=== PATIENT | male | born 1955 | race Caucasian/White ===

== ENCOUNTER 2017-08-13 10:48 | Emergency (ER) | payer OTHER, SELFPAY ==
[2017-08-13 10:54] VITALS: BP 150/85; PULSE 69; RESP 16; TEMP 36.9; O2SAT 96
--- NOTE | 2017-08-13 13:15 | PC.NURSE ---
PT SELF CATH AT 0030 IB 08/12/17. REPORTS HEMATURIA
[2017-08-13 13:27] LABS: Bilirubin Urine UA NEGATIVE (NEGATIVE); Color Urine UA YELLOW; Glucose Urine UA NEGATIVE (NEGATIVE); Ketones Urine UA NEGATIVE (NEGATIVE); Leukocyte Esterase Urine UA 2+ (NEGATIVE); Nitrite Urine UA NEGATIVE (NEGATIVE); Occult Blood Urine UA 3+ (NEGATIVE); Protein Urine UA 2+ (NEGATIVE); Urobilinogen Urine UA 0.2 E.U./dL (0.2)
[2017-08-13 13:50] LABS: Appearance Urine UA SLIGHTLY CLOUDY
[2017-08-13 13:53] LABS: Amorphous Sediment Urine 1+; Bacteria Urine Moderate (10-30); Culture Indicated Urine Specimen Cultured; Mucus Urine 1+ (Negative); RBC Urine 30-100/HPF (0-5/HPF); Squamous Epithelial Cell Urine 0-1 /HPF; WBC Urine 30-100/HPF (0-5/HPF)
--- NOTE | 2017-08-13 14:12 | ED_ITS ---
HPI - Male Genitourinary <SARAH Garduno - Last Filed: 08/13/17 22:35> General Chief complaint: Urogenital-Male Stated complaint: CANT PEE, BLOOD IN URINE, SURGERY FEW MONTHS AGO History of Present Illness HPI Narrative: 62-year-old male here for complaint of not being able to urinate since yesterday. Patient has a history of having acute urinary retention urosepsis status post TURP surgery a couple months ago. He is currently being treated by Urology at [facility]. He states that he uses self catheterization yesterday to be able to urinate but has not been able urinate since. He is currently taken antibiotics for urinary tract infection. He denies any fevers or chills. No flank pain no abdominal pain. No nausea vomiting. Positive p.o. intake. Related Data Home Medications Medication Instructions Recorded Confirmed lisinopril 40 mg PO QDAY #0 04/28/17 08/13/17 pravastatin 40 mg PO QDAY #0 04/28/17 08/13/17 [PROBIOTIC 4X ORAL] 1 tab PO QDAY #0 06/10/17 08/13/17 cholecalciferol (vitamin D3) 2,000 unit PO QDAY #0 06/10/17 08/13/17 [Vitamin D3] diphenhydramine-acetaminophen 2 tab PO HS #0 06/10/17 08/13/17 [Tylenol PM Extra Strength] multivitamin [Multiple Vitamins] 1 tab PO QDAY #0 06/10/17 08/13/17 phenazopyridine [Pyridium] 1 tab PO PRN PRN #0 06/10/17 08/13/17 amoxicillin 1 cap PO TID 08/13/17 08/13/17 cefdinir 300 mg PO BID 08/13/17 08/13/17 Allergies Allergy/AdvReac Type Severity Reaction Status Date / Time adhesive [ADHESIVE] Allergy Unknown Verified 08/15/17 08:03 corn syrup [CORN SYRUP] Allergy Unknown Verified 08/15/17 08:03 lactose [LACTOSE] Allergy Unknown Verified 08/15/17 08:03 EGGS Allergy Unknown DIARRHEA Uncoded 08/15/17 08:03 Review of Systems <SARAH Garduno - Last Filed: 08/13/17 22:35> Constitutional Denies fever(s) Eyes Reports system reviewed and no additional complaints, except as docu ENT Ears, Nose, Mouth, and Throat: Reports system reviewed and no additional complaints, except as docu Cardiovascular Denies chest pain and Denies dyspnea Respiratory Denies dyspnea and Denies wheezing Gastrointestinal Gastrointestinal: Denies abdominal pain Genitourinary Reports other Musculoskeletal Reports system reviewed and no additional complaints, except as docu and Denies back pain Integumentary/Breasts Reports system reviewed and no additional complaints, except as docu Neurologic Reports system reviewed and no additional complaints, except as docu Psychiatric Reports system reviewed and no additional complaints, except as docu Allergic/Immunologic Denies wheezing Exam <SARAH Garduno - Last Filed: 08/13/17 22:35> Const General: healthy appearing, comfortable, well groomed and No acute distress Orientation: alert, awake and oriented x3 HENMT Head: normal to inspection and normocephalic Mouth: moist mucous membranes Eyes Pupils: PERRL EOM: EOM intact bilaterally Resp Effort & Inspection: normal respiratory effort Auscultation: clear to auscultation bilaterally Cardio Rate: regular rate Rhythm: regular rhythm Heart Sounds: S1 normal, S2 normal, no click, no gallops, no murmurs and no rubs GI Inspection: normal to inspection Palpation: soft, No hernia, No mass, No pulsatile mass and No tender General: No CVA tenderness Skin General: dry skin and warm Course <SARAH Garduno - Last Filed: 08/13/17 22:35> Orders Ordered: ED Orders 08/13/17 13:00 Urinalysis and Microscopic Stat Last Vital Signs Temp 98.5 F 08/13/17 10:54 Pulse 50 L 08/13/17 14:22 Resp 12 08/13/17 14:22 BP 133/72 H 08/13/17 14:22 Pulse Ox 50 L 08/13/17 14:22 <Sampson Solis MD - Last Filed: 08/22/17 04:51> Orders Ordered: ED Orders 08/13/17 13:00 Urinalysis and Microscopic Stat Last Vital Signs Temp 98.5 F 08/13/17 10:54 Pulse 50 L 08/13/17 14:22 Resp 08/13/17 14:22 BP 133/72 H 08/13/17 14:22 Pulse Ox 50 L 08/13/17 14:22 MDM - Male Genitourinary <SARAH Garduno - Last Filed: 08/13/17 22:35> [facility] Narrative Medical decision making narrative: Bladder scan showed over 800 mL of urine in the bladder. Kirkpatrick catheterization was completed draining yellow urine. Patient reported feeling better after Kirkpatrick catheter urinalysis indicates urinary tract infection. Patient is currently under antibiotic treatment for this of by Urology at [facility] attempted to contact Urology however was not able to get through. Patient does have appointment with Urology next week. Kirkpatrick catheter is left in a dwelling. Patient encouraged to continue taking antibiotics as directed. For any worsening symptoms return to the emergency room. Patient will follow up with Urology Lab Data Lab Results 08/13/17 Range/Units 13:00 Urine Color Yellow Urine Appearance Slightly cloudy Urine pH 5.0 (4.5-8.0) Ur Specific [place] 1.020 (1.000-1.035) Urine Protein 2+ H (NEGATIVE) Urine Glucose (UA) Negative (NEGATIVE) g/dL Urine Ketones Negative (NEGATIVE) Urine Occult Blood 3+ H (NEGATIVE) Urine Nitrate Negative (NEGATIVE) Urine Bilirubin Negative (NEGATIVE) Urine Urobilinogen 0.2 (0.2) E.U./dL Ur Leukocyte Esterase 2+ H (NEGATIVE) Urine RBC 30-100/hpf H (0-5/HPF) Urine WBC 30-100/hpf H (0-5/HPF) Ur Squamous Epith Cells 0-1 /hpf Amorphous Sediment 1+ Urine Bacteria Moderate (10-30) H (None) Urine Mucus 1+ H (Negative) Ur Culture Indicated? Specimen cultured Micro UA Comment Not Reportable <Sampson Solis MD - Last Filed: 08/22/17 04:51> Medical Records The PA/RN CLINICAL APPEALS functioned independently for the care of this pt, I was available, but not asked to participate in care. I am unable to determine appropriateness of management without personally examining the pt. Lab Data Lab Results 08/13/17 Range/Units 13:00 Urine Color Yellow Urine Appearance Slightly cloudy Urine pH 5.0 (4.5-8.0) Ur Specific [place] 1.020 (1.000-1.035) Urine Protein 2+ H (NEGATIVE) Urine Glucose (UA) Negative (NEGATIVE) g/dL Urine Ketones Negative (NEGATIVE) Urine Occult Blood 3+ H (NEGATIVE) Urine Nitrate Negative (NEGATIVE) Urine Bilirubin Negative (NEGATIVE) Urine Urobilinogen 0.2 (0.2) E.U./dL Ur Leukocyte Esterase 2+ H (NEGATIVE) Urine RBC 30-100/hpf H (0-5/HPF) Urine WBC 30-100/hpf H (0-5/HPF) Ur Squamous Epith Cells 0-1 /hpf Amorphous Sediment 1+ Urine Bacteria Moderate (10-30) H (None) Urine Mucus 1+ H (Negative) Ur Culture Indicated? Specimen cultured Micro UA Comment Not Reportable Discharge Plan Departure Patient Disposition: Home, Self-Care Clinical Impression: Acute urinary retention Discharge Date/Time: 08/13/17 14:43 Interventions: ED Discharge Assessment Last Done: 08/13/17 14:43 Instructions: DI for Urinary Retention in Men Activity Restrictions/Additional Instructions: Kirkpatrick catheter was inserted to allow you to be able to urinate. Keep Kirkpatrick catheter in place. Follow up with Urology as scheduled or sooner if able. Continue taking the antibiotics as prescribed. For any worsening symptoms return to the emergency room. Prescriptions: No Action lisinopril 40 MG tablet 40 mg PO QDAY Qty: 0 RF: 0 pravastatin 40 MG tablet 40 mg PO QDAY Qty: 0 RF: 0 phenazopyridine [Pyridium] 100 MG tablet 1 tab PO PRN PRN (Reason: Analgesia) Qty: 0 RF: 0 cholecalciferol (vitamin D3) [Vitamin D3] 2,000 UNIT capsule 2,000 unit PO QDAY Qty: 0 RF: 0 multivitamin [Multiple Vitamins] 1 EACH tablet 1 tab PO QDAY Qty: 0 RF: 0 diphenhydramine-acetaminophen [Tylenol PM Extra Strength] 500 MG/25 MG tablet 2 tab PO HS Qty: 0 RF: 0 [PROBIOTIC 4X ORAL] 1 tab PO QDAY Qty: 0 RF: 0 amoxicillin 500 mg capsule 1 cap PO TID RF: 0 cefdinir 300 mg capsule 300 mg PO BID RF: 0 Referrals: Gildardo Jones MD [Primary Care Provider] -
[2017-08-13 14:22] VITALS: BP 133/72; PULSE 50; RESP 12; O2SAT 50
== END 2017-08-13 14:43 | disposition home or self-care (01) ==
PROVIDERS: Emergency Provider Nurse Practitioner Family; Family Provider Family Medicine; PCP Family Medicine
DX: R33.9 Retention of urine, unspecified (principal)
CPT/HCPCS: 51701; 51798; 81001; 87086; 99283

== ENCOUNTER 2017-08-14 06:13 | Emergency (ER) | payer OTHER, SELFPAY ==
[2017-08-13 10:54] VITALS: TEMP 36.9
[2017-08-14 07:00] VITALS: BP 150/84; PULSE 62; RESP 18; TEMP 36.9; O2SAT 99
[2017-08-14 07:03] VITALS: BP 147/70; PULSE 61; RESP 18; O2SAT 98
--- NOTE | 2017-08-22 04:08 | ED_ITS ---
HPI - Male Genitourinary General Chief complaint: Urogenital-Male Stated complaint: HAS DAVIES IN, THINKS IT IS PLUGGED Time Seen by Provider: 08/14/17 07:18 History of Present Illness HPI Narrative: HPI 62 y/o male s/p TURP with subsequent Davies catheter usage presents due to difficulty urinating through his Davies catheter. Denies fevers, chills, suprapubic pain, or dysuria. Patient has follow-up later today with urology. ROS with no recent constitutional symptoms. Exam Gen: Pleasant, nontoxic-appearing, resting comfortably. HEENT: NC, AT, PEERL, EOMI. Resp: Unlabored respirations with a normal work of breathing. Card: Extremities warm and well perfused. GI: Non-distended. : no suprapubic tenderness palpation. MSK: No visible deformities, strength and tone without visually appreciable deficit. Neuro: AO x 3, no facial asymmetry, vision and hearing WNL. Heme/Lymph: Deferred Skin: Normal color with no visible lesions (other than noted above). Psych: Mood and affect appropriate. UA - 3+ blood, positive nitrate, 2+ leukocyte esterase. Moderate bacteria, 0-1 squamous epithelial cells. MDM Previous chart, nursing note, and vitals reviewed. A: 62 y/o male s/p TURP with subsequent Davies catheter usage presents due to difficulty urinating through his Davies catheter. DDx & Evaluation: Davies catheter exchange by nursing prior to evaluation, patient had subsequent complete drainage of bladder. UA sent by protocol, review , consistent with colonization as history and exam are without signs of active infection. Patient discharged to same-day urology follow-up for further care. Impression: urinary retention (please reference below for remainder of encounter information) Related Data Home Medications Medication Instructions Recorded Confirmed lisinopril 40 mg PO QDAY #0 04/28/17 08/13/17 pravastatin 40 mg PO QDAY #0 04/28/17 08/13/17 [PROBIOTIC 4X ORAL] 1 tab PO QDAY #0 06/10/17 08/13/17 cholecalciferol (vitamin D3) 2,000 unit PO QDAY #0 06/10/17 08/13/17 [Vitamin D3] diphenhydramine-acetaminophen 2 tab PO HS #0 06/10/17 08/13/17 [Tylenol PM Extra Strength] multivitamin [Multiple Vitamins] 1 tab PO QDAY #0 06/10/17 08/13/17 phenazopyridine [Pyridium] 1 tab PO PRN PRN #0 06/10/17 08/13/17 amoxicillin 1 cap PO TID 08/13/17 08/13/17 cefdinir 300 mg PO BID 08/13/17 08/13/17 Allergies Allergy/AdvReac Type Severity Reaction Status Date / Time adhesive [ADHESIVE] Allergy Unknown Verified 08/15/17 08:03 corn syrup [CORN SYRUP] Allergy Unknown Verified 08/15/17 08:03 lactose [LACTOSE] Allergy Unknown Verified 08/15/17 08:03 EGGS Allergy Unknown DIARRHEA Uncoded 08/15/17 08:03 Course Last Vital Signs Temp 98.5 F 08/14/17 07:00 Pulse 61 08/14/17 07:03 Resp 18 08/14/17 07:03 BP 147/70 H 08/14/17 07:03 Pulse Ox 98 08/14/17 07:03 Discharge Plan Departure Patient Disposition: Home, Self-Care Clinical Impression: Complication, blocked Davies catheter Discharge Date/Time: 08/14/17 07:34 Interventions: ED Discharge Assessment Last Done: 08/14/17 07:34 Activity Restrictions/Additional Instructions: Please follow up as scheduled with your urologist today. Please return if you have fevers, chills, bladder pain, if you are unable to urinate or if you are otherwise concerned about your health. Prescriptions: No Action lisinopril 40 MG tablet 40 mg PO QDAY Qty: 0 RF: 0 pravastatin 40 MG tablet 40 mg PO QDAY Qty: 0 RF: 0 phenazopyridine [Pyridium] 100 MG tablet 1 tab PO PRN PRN (Reason: Analgesia) Qty: 0 RF: 0 cholecalciferol (vitamin D3) [Vitamin D3] 2,000 UNIT capsule 2,000 unit PO QDAY Qty: 0 RF: 0 multivitamin [Multiple Vitamins] 1 EACH tablet 1 tab PO QDAY Qty: 0 RF: 0 diphenhydramine-acetaminophen [Tylenol PM Extra Strength] 500 MG/25 MG tablet 2 tab PO HS Qty: 0 RF: 0 [PROBIOTIC 4X ORAL] 1 tab PO QDAY Qty: 0 RF: 0 amoxicillin 500 mg capsule 1 cap PO TID RF: 0 cefdinir 300 mg capsule 300 mg PO BID RF: 0
== END 2017-08-14 07:34 | disposition home or self-care (01) ==
PROVIDERS: Emergency Provider Emergency Medicine; Family Provider Family Medicine; PCP Family Medicine
DX: T83.091A Other mechanical complication of indwelling urethral catheter, initial encounter (principal)
CPT/HCPCS: 51700; 99283

== ENCOUNTER 2017-08-15 07:54 | Emergency (ER) | payer OTHER, SELFPAY ==
[2017-08-15 08:00] VITALS: BP 168/79; PULSE 61; RESP 15; TEMP 37.1; O2SAT 96; BMI 27.2
--- NOTE | 2017-08-15 08:25 | PC.NURSE ---
pt with enlarge prostates, claims catheter 16 f (caude)is not draining, requesting bigger cath. on arrival huang irrigated without difficulty, draining yellow urine with no clots or fiber noted. dr cloud made aware. pt denies pain ,fever,nausea or vomiting. spouse at bs during procedure.
[2017-08-15 09:03] VITALS: BP 159/74; PULSE 52; RESP 16; O2SAT 97
--- NOTE | 2017-08-15 09:08 | ED_ITS ---
HPI - Male Genitourinary General Chief complaint: Urogenital-Male Stated complaint: CATH IS PLUGGED Time Seen by Provider: 08/15/17 08:00 Source: patient and family Mode of arrival: ambulatory Limitations: no limitations History of Present Illness HPI Narrative: Patient returns to the emergency department for evaluation of a Huang catheter problem. He has had ongoing difficulties initiating a urine stream since he had a TURP a few months ago. He was seen yesterday and had a 14 Jamaican coude catheter placed. It had been functioning fine until this morning and after attempts at irrigation it would not drain. He denies fever chills or pain. He has a follow-up appointment with his urologist next Friday Complaint: other (Huang catheter problem) Onset (ago): hour(s) Duration: constant Related Data Home Medications Medication Instructions Recorded Confirmed lisinopril 40 mg PO QDAY #0 04/28/17 08/13/17 pravastatin 40 mg PO QDAY #0 04/28/17 08/13/17 [PROBIOTIC 4X ORAL] 1 tab PO QDAY #0 06/10/17 08/13/17 cholecalciferol (vitamin D3) 2,000 unit PO QDAY #0 06/10/17 08/13/17 [Vitamin D3] diphenhydramine-acetaminophen 2 tab PO HS #0 06/10/17 08/13/17 [Tylenol PM Extra Strength] multivitamin [Multiple Vitamins] 1 tab PO QDAY #0 06/10/17 08/13/17 phenazopyridine [Pyridium] 1 tab PO PRN PRN #0 06/10/17 08/13/17 amoxicillin 1 cap PO TID 08/13/17 08/13/17 cefdinir 300 mg PO BID 08/13/17 08/13/17 Allergies Allergy/AdvReac Type Severity Reaction Status Date / Time adhesive [ADHESIVE] Allergy Unknown Verified 08/15/17 08:03 corn syrup [CORN SYRUP] Allergy Unknown Verified 08/15/17 08:03 lactose [LACTOSE] Allergy Unknown Verified 08/15/17 08:03 EGGS Allergy Unknown DIARRHEA Uncoded 08/15/17 08:03 Review of Systems Review of Systems All systems reviewed & are unremarkable except as noted in HPI and below Constitutional Denies chills, Denies fever(s), Denies lethargy and Denies weakness ENT Ears, Nose, Mouth, and Throat: Denies change in voice, Denies neck pain and Denies sore throat Cardiovascular Denies dyspnea and Denies dyspnea on exertion Respiratory Denies cough, Denies dyspnea, Denies dyspnea on exertion and Denies wheezing Genitourinary Reports system reviewed and no additional complaints, except as docu Comments: urinary retention Musculoskeletal Denies neck pain Integumentary/Breasts Denies pruritus, Denies erythema, Denies rash and Denies wounds Neurologic Denies weakness Allergic/Immunologic Denies wheezing Exam Const General: cooperative and well developed Nutritional Appearance: well nourished Orientation: alert, awake, oriented x3 and not confused HENAR Head: normocephalic and atraumatic Ears: external ears normal and TM's normal bilaterally Nose: external nose normal and No nasal discharge Face and sinus: sinuses nontender, face symmetric, no sinus tenderness and No dry mucous membranes Mouth: oral mucosae normal and moist mucous membranes Teeth and gingiva: dentition normal Throat: tonsils normal and uvula midline Resp Effort & Inspection: normal respiratory effort, able to speak in complete sentences, no respiratory distress and no use of accessory muscles Auscultation: clear to auscultation bilaterally, no rales, no rhonchi and no wheezes GI Inspection: non-distended Palpation: soft, no hepatosplenomegaly, No guarding, No pulsatile mass and No tender Auscultation: normal bowel sounds Other: huang in place, draining appropriately Skin General: no rashes or lesions noted, No jaundice and No petechiae Course Reevaluation(s) Reevaluation #1: Patient eventually states that he had been leaking urine around his Huang at which point we discussed placing a slightly larger Huang. Nursing placed an 18 Jamaican without difficulty which was draining appropriately on discharge. Last Vital Signs Temp 98.7 F 08/15/17 08:00 Pulse 52 L 08/15/17 09:03 Resp 16 08/15/17 09:03 BP 159/74 H 08/15/17 09:03 Pulse Ox 97 08/15/17 09:03 Discharge Plan Departure Patient Disposition: Home, Self-Care Clinical Impression: Complication of Huang catheter Discharge Date/Time: 08/15/17 09:18 Interventions: ED Discharge Assessment Last Done: 08/15/17 09:27 Instructions: How to Care for Your Huang Catheter -- Male Prescriptions: No Action lisinopril 40 MG tablet 40 mg PO QDAY Qty: 0 RF: 0 pravastatin 40 MG tablet 40 mg PO QDAY Qty: 0 RF: 0 phenazopyridine [Pyridium] 100 MG tablet 1 tab PO PRN PRN (Reason: Analgesia) Qty: 0 RF: 0 cholecalciferol (vitamin D3) [Vitamin D3] 2,000 UNIT capsule 2,000 unit PO QDAY Qty: 0 RF: 0 multivitamin [Multiple Vitamins] 1 EACH tablet 1 tab PO QDAY Qty: 0 RF: 0 diphenhydramine-acetaminophen [Tylenol PM Extra Strength] 500 MG/25 MG tablet 2 tab PO HS Qty: 0 RF: 0 [PROBIOTIC 4X ORAL] 1 tab PO QDAY Qty: 0 RF: 0 amoxicillin 500 mg capsule 1 cap PO TID RF: 0 cefdinir 300 mg capsule 300 mg PO BID RF: 0
--- NOTE | 2017-08-15 09:28 | PC.NURSE ---
huang draining well, clear yellow urine, pt much satisfied.
== END 2017-08-15 09:18 | disposition home or self-care (01) ==
PROVIDERS: Emergency Provider Emergency Medicine; Family Provider Family Medicine; PCP Family Medicine
DX: T83.9XXA Unspecified complication of genitourinary prosthetic device, implant and graft, initial encounter (principal)
CPT/HCPCS: 51700; 51701; 51705; 99283

== ENCOUNTER → 2017-08-26 07:39 | Outpatient (CLI) | payer OTHER, SELFPAY ==
[2017-08-26 08:52] LABS: Appearance Urine UA CLEAR; Bilirubin Urine UA NEGATIVE (NEGATIVE); Color Urine UA YELLOW; Glucose Urine UA TRACE g/dL (Negative); Ketones Urine UA NEGATIVE (NEGATIVE); Leukocyte Esterase Urine UA NEGATIVE (NEGATIVE); Nitrite Urine UA NEGATIVE (NEGATIVE); Occult Blood Urine UA TRACE-LYSED (Negative); Protein Urine UA TRACE (Negative); Specific Gravity Urine UA 1.025 (1.000-1.035); Urobilinogen Urine UA 0.2 E.U./dL (0.2)
[2017-08-26 09:50] LABS: RBC Urine 5-10/HPF (0-5/HPF); WBC Urine 5-10/HPF (0-5/HPF)
[2017-08-26 09:51] LABS: Culture Indicated Urine Specimen Cultured
== END ==
PROVIDERS: Family Provider Family Medicine; PCP Family Medicine; Visit Provider Internal Medicine Infectious Disease
DX: N39.0 Urinary tract infection, site not specified (principal)
CPT/HCPCS: 81001; 87086

== ENCOUNTER → 2017-10-01 16:52 | Outpatient (CLI) | payer OTHER, SELFPAY ==
[2017-10-01 17:19] LABS: Add Manual Diff / Slide Review NO; Basophils Percent Auto 0.5 % (0-2); Eosinophils Percent Auto 0.3 % (2-4); Hematocrit 43.1 % (41-53); Hemoglobin 14.6 g/dL (13.5-17.5); Lymphocytes Percent Auto 43.2 % (25-40); Mean Corpuscular HGB Conc 33.9 % (30-36); Mean Corpuscular Hemoglobin 30.3 PG (26-34); Mean Corpuscular Volume 89.3 fL (80-100); Monocytes Percent Auto 10.1 % (3-14); Neutrophils Absolute Auto 2400 /uL (3000-5900); Neutrophils Percent Auto 45.9 % (50-75); Platelet Count 220 X10^3/uL (150-400); Red Blood Cell Count 4.82 X10^6/uL (4.5-5.9); Red Cell Distribution Width 13.7 % (11.6-14.8); White Blood Cell Count 5.2 X10^3/uL (4.5-11.0)
[2017-10-01 17:43] LABS: Erythrocyte Sedimentation Rate 3 MM/HR (0-15)
[2017-10-01 18:22] LABS: C-Reactive Protein Quant < 0.5 mg/dL (<1.0)
[2017-10-01 18:46] LABS: Thyroid Stimulating Hormone 3.31 uIU/mL (0.47-4.68)
== END ==
PROVIDERS: Family Provider Family Medicine; PCP Family Medicine; Visit Provider Family Medicine
DX: R53.83 Other fatigue (principal)
CPT/HCPCS: 36415; 84443; 85025; 85651; 86140

== ENCOUNTER → 2017-11-01 09:40 | Outpatient (CLI) | payer OTHER, SELFPAY ==
[2017-11-03 06:26] LABS: Hemoglobin A1C% w Est Avg Glu 6.2 % (4.0-6.0)
== END ==
PROVIDERS: Family Provider Family Medicine; PCP Family Medicine; Visit Provider Family Medicine
DX: E74.39 Other disorders of intestinal carbohydrate absorption (principal)
CPT/HCPCS: 36415; 83036

== ENCOUNTER 2020-01-10 10:30 | Outpatient (RCR) | payer OTHER, SELFPAY ==
--- NOTE | 2019-12-31 13:33 | PT.OIE ---
Current Diagnoses Dizziness and giddiness (12/31/19) Past Medical History (Last Updated 11/07/19 @ 19:25 by SARAH Chaudhary) Cat bite of hand (Resolved) Excessive daytime sleepiness (Inactive) Obesity (BMI 30-39.9) (Chronic) Obstructive sleep apnea (Chronic 11/05/18) Snoring (Inactive) Visit Care Team Role Provider Type Gildardo Jones MD Attending Provider Physician Family Provider Primary Care Provider Referring Provider Specialty: Family Practice Address: [address] [place] [address], [facility] Email: [email or web address] Therapy Initial Evaluation PT-OP-A Visit Information Start: 12/28/19 07:25 Freq: Status: Active Protocol: Document 12/31/19 09:47 MB (Rec: 12/31/19 10:03 MB [id number]) Out-Patient Physical Therapy Visit Information Visit Information Visit Type Initial Evaluation Visit Start Time 09:47 Visit Stop Time 10:25 Total Visit Minutes 38 Visit Number 1 Evaluation Information Evaluation Date 12/31/19 PT-OP-B Current Condition Start: 12/28/19 07:25 Freq: Status: Active Protocol: Document 12/31/19 09:47 MB (Rec: 12/31/19 10:03 MB [id number]) Current Condition History of Current Condition Onset Date 3 months ago Current Complaints Going to lie down and rolling in the bed makes me dizzy History of Current Condition PMH: DM, HTN. TURP surgery 2 years ago and pt got e-coli and almost . Pt reports that he punctured his left ear drum a few years ago. He had surgery. Pt reports dizziness with lying down and rolling in the bed. Pt denies the following: numbness/tingling, vision changes, ear pressure, concussion, performance of sit -ups, anemia, weakness, hearing change, sinus/allergy issues, trouble swallowing, recent overhead lifting, B12 deficiency, eye pressure changes, roaring/ringing in the ears, history of whiplash injury, chiropractor treatment , TMJ problems, headache Treatment Goals Patient/Caregiver Goals To get rid of the dizziness. PT-OP-C Subjective Start: 12/28/19 07:25 Freq: Status: Active Protocol: Document 12/31/19 09:47 MB (Rec: 12/31/19 10:03 MB [id number]) OP-PT Subjective Patient Comments Patient Comments See history of current condition Patient Questionnaires Dizziness Handicap Inventory DHI Score 12 DHI Functional Impairment 1 to 19% Impaired (Score 1-19) PT-OP-K Range of Motion Start: 12/28/19 07:25 Freq: Status: Active Protocol: Document 12/31/19 09:47 MB (Rec: 12/31/19 13:33 MB [id number]) Cervical Spine Range of Motion Cervical Spine Active Testing Position Sitting Comments Cervical ROM WFLs for pt's age and postural changes of forward head and rounded shoulders Shoulder Goniometric Range of Motion Shoulder Left Shoulder ROM WFL Yes Testing Position Sitting Right Shoulder ROM WFL Yes Testing Position Sitting PT-OP-M Strength Start: 12/28/19 07:25 Freq: Status: Active Protocol: Document 12/31/19 09:47 MB (Rec: 12/31/19 13:33 MB [id number]) Shoulder Strength Shoulder Manual Muscle Testing Left Flexion 5 Normal Right Flexion 5 Normal Elbow/Forearm Strength Elbow and Forearm Manual Muscle Testing Left Extension (C7) 5 Normal Right Extension (C7) 5 Normal PT-OP-O Vestibular Start: 12/28/19 07:25 Freq: Status: Active Protocol: Document 12/31/19 09:47 MB (Rec: 12/31/19 13:33 MB [id number]) Vestibular Assessment Visual Testing Smooth Pursuits Horizontal Normal Smooth Pursuits Vertical Normal Gaze Evoked Nystagmus With Fixation Negative Convergence Test WNL Spontaneous Nystagmus Negative Positional Testing [place]-Hallpike Positive Right,Upbeating,< 60 Seconds PT-OP-Q Treatments Start: 12/28/19 07:25 Freq: Status: Active Protocol: Document 12/31/19 09:47 MB (Rec: 12/31/19 13:23 MB [id number]) Self-Care/Home Management Treatment Education Other Education Handouts about BPPV, education about AROM, keeping neck and shoulders loose, increasing non-caffeinated fluid intake and proper use of towel support for cervical support at night Canalithic Repositioning BPPV Treatment Other Comments Modified Haley for right posterior canalithiasis and pt clear after first treatment when re-checked with [place]- Hallpike PT-OP-T Assessment and Plan Start: 12/28/19 07:25 Freq: Status: Active Protocol: Document 12/31/19 09:47 MB (Rec: 12/31/19 13:29 MB [id number]) Physical Therapy Assessment Rehab Potential Rehabilitation Potential Excellent Evaluation Complexity Number of Personal Factors/Comorbidities 1-2 Number of Body Systems Impaired 1-2 Clinical Presentation at Evaluation Stable Impairments Impairments Balance,Posture,Vestibular Goals 2 Halfway Goal (LTG) Pt will perform progressive HEP with I including cervical ROM and flexiblity, other postural, VOR and balance exercises to improve mobility and balance by 01/30/2020. LTG Duration 4 weeks 1 [employer] Integration Specialist Goal (LTG) Pt will perform WNLs on a standardized balance test to decrease fall risk by 2019. LTG Duration 4 weeks Assessment Summary Assessment Pt is a 64 y/o male presenting with dizziness when moving from sitting to side lying and with rolling over in the bed. His oculomotor, strength and coordinaton screens are normal today. He presents with positive right posterior canalithiasis BPPV this date with [place]-Hallpike testing and so treated. Nystagmus and dizziness resolved after treatment. Anticipate 1-3 more treatments to reassess BPPV if needed and to assess balance and provide any exercises for HEP if needed. Physical Therapy Plan Frequency and Duration Frequency of Treatment 1x/Week Duration of Treatment 4 weeks Plan of Care Start Date 12/31/19 Plan of Care End Date 02/04/20 Therapeutic Interventions Therapeutic Interventions Balance Training,Canalithic Repositioning,Home Exercise Program,Manual Therapy, Neuromuscular Re-education, Patient/Caregiver Education, Self-Care/Home Management,Soft Tissue Mobilization, Therapeutic Exercises, Vestibular Rehabilitation Next Visit Focus/Plan Next Note Type Treatment Note Next Visit Plan Reassess BPPV if needed. If appropriate, VOR testing with eye chart, FGA and orthostatic testing.
--- NOTE | 2019-12-31 13:34 | PT.OPPOC ---
Physical, Occupational & Speech Therapy At [facility] Current Diagnoses Dizziness and giddiness (12/31/19) Visit Care Team Role Provider Type Gildardo Jones MD Attending Provider Physician Family Provider Primary Care Provider Referring Provider Specialty: Family Practice Address: [address] [place] [address] [place], [address] Email: [email or web address] Plan Of Care PT-OP-T Assessment and Plan Start: 12/28/19 07:25 Freq: Status: Active Protocol: Document 12/31/19 09:47 MB (Rec: 12/31/19 13:29 MB [id number]) Physical Therapy Assessment Rehab Potential Rehabilitation Potential Excellent Evaluation Complexity Number of Personal Factors/Comorbidities 1-2 Number of Body Systems Impaired 1-2 Clinical Presentation at Evaluation Stable Impairments Impairments Balance,Posture,Vestibular Goals 2 Residential Goal (LTG) Pt will perform progressive HEP with I including cervical ROM and flexiblity, other postural, VOR and balance exercises to improve mobility and balance by 01/30/2020. LTG Duration 4 weeks 1 Stem Cleaning Machine Feeder Goal (LTG) Pt will perform WNLs on a standardized balance test to decrease fall risk by 2019. LTG Duration 4 weeks Assessment Summary Assessment Pt is a 64 y/o male presenting with dizziness when moving from sitting to side lying and with rolling over in the bed. His oculomotor, strength and coordinaton screens are normal today. He presents with positive right posterior canalithiasis BPPV this date with Ashvin-Hallpike testing and so treated. Nystagmus and dizziness resolved after treatment. Anticipate 1-3 more treatments to reassess BPPV if needed and to assess balance and provide any exercises for HEP if needed. Physical Therapy Plan Frequency and Duration Frequency of Treatment 1x/Week Duration of Treatment 4 weeks Plan of Care Start Date 12/31/19 Plan of Care End Date 02/04/20 Therapeutic Interventions Therapeutic Interventions Balance Training,Canalithic Repositioning,Home Exercise Program,Manual Therapy, Neuromuscular Re-education, Patient/Caregiver Education, Self-Care/Home Management,Soft Tissue Mobilization, Therapeutic Exercises, Vestibular Rehabilitation Next Visit Focus/Plan Next Note Type Treatment Note Next Visit Plan Reassess BPPV if needed. If appropriate, VOR testing with eye chart, FGA and orthostatic testing. Plan of Care Dates Plan of Care Start Date 12/31/19 Plan of Care End Date 02/04/20 Electronically Signed by: Gauri Angel, PT 12/31/19 [id number] Please Sign and Return: I have reviewed this Plan of Care and certify that the skilled therapy services above are required to meet the patient?s needs. Physician Signature Date Printed Name and Credentials Clinical Instructor Signature Printed Name and Credentials
--- NOTE | 2020-01-10 11:03 | PT.OTN ---
Current Diagnoses Dizziness and giddiness (01/10/20) Physical Therapy Treatment Note PT-OP-A Visit Information Start: 12/28/19 07:25 Freq: Status: Active Protocol: Document 01/10/20 10:30 MB (Rec: 01/10/20 11:02 MB [id number]) Out-Patient Physical Therapy Visit Information Visit Information Visit Type Treatment Note Visit Start Time 10:30 Visit Stop Time 10:56 Total Visit Minutes 26 Visit Number 2 PT-OP-B Current Condition Start: 12/28/19 07:25 Freq: Status: Active Protocol: Document 12/31/19 09:47 MB (Rec: 12/31/19 10:03 MB [id number]) Current Condition History of Current Condition Onset Date 3 months ago Current Complaints Going to lie down and rolling in the bed makes me dizzy History of Current Condition PMH: DM, HTN. TURP surgery 2 years ago and pt got e-coli and almost . Pt reports that he punctured his left ear drum a few years ago. He had surgery. Pt reports dizziness with lying down and rolling in the bed. Pt denies the following: numbness/tingling, vision changes, ear pressure, concussion, performance of sit -ups, anemia, weakness, hearing change, sinus/allergy issues, trouble swallowing, recent overhead lifting, B12 deficiency, eye pressure changes, roaring/ringing in the ears, history of whiplash injury, chiropractor treatment , TMJ problems, headache Treatment Goals Patient/Caregiver Goals To get rid of the dizziness. PT-OP-C Subjective Start: 12/28/19 07:25 Freq: Status: Active Protocol: Document 01/10/20 10:30 MB (Rec: 01/10/20 11:02 MB [id number]) OP-PT Subjective Patient Comments Patient Comments I have had zero dizziness. PT-OP-K Range of Motion Start: 12/28/19 07:25 Freq: Status: Active Protocol: Document 12/31/19 09:47 MB (Rec: 12/31/19 13:33 MB [id number]) Cervical Spine Range of Motion Cervical Spine Active Testing Position Sitting Comments Cervical ROM WFLs for pt's age and postural changes of forward head and rounded shoulders Shoulder Goniometric Range of Motion Shoulder Left Shoulder ROM WFL Yes Testing Position Sitting Right Shoulder ROM WFL Yes Testing Position Sitting PT-OP-M Strength Start: 12/28/19 07:25 Freq: Status: Active Protocol: Document 12/31/19 09:47 MB (Rec: 12/31/19 13:33 MB [id number]) Shoulder Strength Shoulder Manual Muscle Testing Left Flexion 5 Normal Right Flexion 5 Normal Elbow/Forearm Strength Elbow and Forearm Manual Muscle Testing Left Extension (C7) 5 Normal Right Extension (C7) 5 Normal PT-OP-O Vestibular Start: 12/28/19 07:25 Freq: Status: Active Protocol: Document 12/31/19 09:47 MB (Rec: 12/31/19 13:33 MB [id number]) Vestibular Assessment Visual Testing Smooth Pursuits Horizontal Normal Smooth Pursuits Vertical Normal Gaze Evoked Nystagmus With Fixation Negative Convergence Test WNL Spontaneous Nystagmus Negative Positional Testing Ashvin-Hallpike Positive Right,Upbeating,< 60 Seconds PT-OP-Q Treatments Start: 12/28/19 07:25 Freq: Status: Active Protocol: Document 01/10/20 10:30 MB (Rec: 01/10/20 11:02 MB [id number]) Neuro Re-Education Treatment Other Activities Ashvin-Hallpike Comments Ashvin-Hallpike B negative Self-Care/Home Management Treatment Education Other Education Review of mechanism of BPPV, recurrence rate, increasing non-caffeinated fluid intake and decreasing caffeine and alcohol intake, con't cervical ROM. PT-OP-T Assessment and Plan Start: 12/28/19 07:25 Freq: Status: Active Protocol: Document 01/10/20 10:30 MB (Rec: 01/10/20 11:02 MB [id number]) Physical Therapy Assessment Rehab Potential Rehabilitation Potential Excellent Evaluation Complexity Number of Personal Factors/Comorbidities 1-2 Number of Body Systems Impaired 1-2 Clinical Presentation at Evaluation Stable Impairments Impairments Balance,Posture,Vestibular Goals 2 Residential Goal (LTG) Pt will perform progressive HEP with I including cervical ROM and flexiblity, other postural, VOR and balance exercises to improve mobility and balance by 01/30/2020. LTG Duration 4 weeks 1 Wellness Program Administrator Goal (LTG) Pt will perform WNLs on a standardized balance test to decrease fall risk by 2019. LTG Duration 4 weeks Assessment Summary Assessment BPPV testing is clear and re- ed pt in mechanism of BPPV, increased non-caffeinated fluid intake, recurrence risk, cervical ROM. He defers HEP and balance testing and exercises with reports of baseline presentation and no imbalance. He has no more PT needs. Will d/c PT. Physical Therapy Plan Discharge Physical Therapy Discharge Reasons Goals Met
== END 2020-01-20 09:51 ==
LOC: PHYS 10:30
PROVIDERS: Family Provider Family Medicine; PCP Family Medicine; Referring Provider Family Medicine; Visit Provider Family Medicine
DX: R42 Dizziness and giddiness (principal)
CPT/HCPCS: 95992; 97161; 97535

== ENCOUNTER → 2020-01-24 09:25 | Outpatient (CLI) | payer OTHER, SELFPAY ==
[2020-01-25 06:45] LABS: COVID19 Sendout Not Detected (Not Detect)
== END ==
PROVIDERS: Family Provider Family Medicine; PCP Family Medicine; Visit Provider Physician Assistant
DX: Z01.812 Encounter for preprocedural laboratory examination (principal)
CPT/HCPCS: 87635

== ENCOUNTER 2020-01-27 07:32 | Day surgery (SDC) | payer OTHER, SELFPAY ==
--- NOTE | 2020-01-27 | PATH_ITS ---
[facility] Accession Number: [id number] . 01 Material submitted: . colon - 60 CM COLON POLYP X2 . 02 Diagnosis: 60 cm Colon Polyp x2: Portions of tubular adenoma x2. Superficial portions of colorectal mucosa x2 with patchy hyperplastic mucosal change. Superficial portion of colorectal mucosa x1 with no significant histomorphologic abnormality. [facility] 01/31/2020 1139 Local . 02 Electronically signed: . Wendy Turner MD, Pathologist NPI- [id number] . 01 Gross description: . The specimen is received in formalin, labeled 60 cm colon polyp and consists of five juarez-pink fragments of soft tissue, measuring 1.0 x 0.7 x 0.2 cm in aggregate. The specimen is entirely submitted in cassette A1. ([id number]) /[facility] 01/28/2020 1755 Local . 02 Pathologist provided ICD-10: K63.5, Z12.11 . 02 CPT . 227230 Performed at: 01 [facility] [address], [place], [place] [id number] MD Scot Cifuentes MD Phone: [phone] Performed at: 02 [facility] [address] [place], [place] [id number] MD Wendy Barney MD Phone: [phone]
[2020-01-27 07:48] VITALS: BP 153/93; PULSE 82; RESP 12; TEMP 36.2; O2SAT 100; BMI 31.8
[2020-01-27] MEDS: LACTATED RINGERS 1,000 ML 200 ML IV (08:10)
--- NOTE | 2020-01-27 08:35 | PM.HP.1 ---
History of Present Illness History of Present Illness Date Patient Seen: 01/27/20 Time Patient Seen: 08:35 Chief complaint: SCREENING COLONOSCOPY Narrative: The patient is a gentleman here for screening colonoscopy. He has a high risk patient. This is his 5th colonoscopy. He has had polyps in the past. Patient History Medical History (Updated 01/27/20 @ 08:36 by Eric Ryder MD) Cat bite of hand (Resolved) Excessive daytime sleepiness (Inactive) History of adenomatous polyp of colon (Acute) Obesity (BMI 30-39.9) (Chronic) Obstructive sleep apnea (Chronic 11/05/18) Snoring (Inactive) Family & Social History Social History: household members spouse Tobacco & Substance use: Smoking Status Never smoker alcohol intake frequency 0-2 drinks per day Substance Use Type does not use Meds Home Medications and Allergies Home Medications Medication Instructions Recorded Confirmed Type pravastatin 40 mg PO QDAY #0 04/28/17 01/27/20 History [PROBIOTIC 4X ORAL] 1 tab PO QDAY #0 06/10/17 02/04/19 History cholecalciferol (vitamin D3) 2,000 unit PO QDAY #0 06/10/17 01/27/20 History [Vitamin D3] diphenhydramine-acetaminophen 2 tab PO HS #0 06/10/17 01/27/20 History [Tylenol PM Extra Strength] aspirin 81 mg tablet,delayed 81 mg PO DAILY 10/06/18 01/27/20 History release candesartan 32 mg tablet 32 mg PO DAILY 10/06/18 01/27/20 History diltiazem HCl 240 mg 240 mg PO DAILY 10/06/18 01/27/20 History capsule,extended release 24 hr, controlled metoprolol succinate 50 mg 50 mg PO DAILY 10/06/18 01/27/20 History tablet,extended release 24 hr multivitamin 2 tab PO QDAY #0 tab 10/06/18 01/27/20 History Respironics Dreamstation CPAP #1 ea 02/04/19 02/04/19 History Allergies Allergy/AdvReac Type Severity Reaction Status Date / Time adhesive [ADHESIVE] Allergy Unknown Verified 01/27/20 07:44 corn syrup [CORN SYRUP] Allergy Unknown Verified 01/27/20 07:44 lactose [LACTOSE] Allergy Unknown Verified 01/27/20 07:44 EGGS Allergy Unknown DIARRHEA Uncoded 01/27/20 07:44 Review of Systems Review of Systems Narrative: Sugar 162 ROS: Yes All systems reviewed with the patient and are negative except as otherwise documented Exam Vital Signs (past 8 hours): - 01/27/20 07:48 Temperature 97.2 F L Pulse Rate 82 Respiratory Rate 12 Blood Pressure 153/93 H Pulse Oximetry 100 Oxygen Delivery Method Room Air Narrative Exam Narrative: Pleasant cooperative patient no apparent distress. A Bit overweight . Lungs are clear to auscultation. No rales or rhonchi. Heart regular rate and rhythm no murmur gallop. Abdomen is soft nontender without mass. No obvious hernias. Patient is alert and oriented x3. Assessment & Plan Assessment & Plan narrative: The patient for a screening colonoscopy. I have discussed the procedure with them. Risks of bleeding, perforation which would necessitate major operation, failure to find remove all lesions, the potential tattoo were all discussed. All questions were answered. They wished to proceed.
--- NOTE | 2020-01-27 08:37 | PM.PREOP ---
Pre-operative Note COVID-19 COVID-19 status: Negative Result date/Date tested (Pos, Neg/Pending): 01/24/20 Interval Note History & Physical reviewed/Exam performed by Physician: Yes Changes to H&P: No ASA Class (for procedural sedation): III
[2020-01-27] MEDS: MIDAZOLAM 5 MG/5 ML VIAL IV (08:51)
[2020-01-27] MEDS: fentaNYL 250 MCG/5 ML INJ IV (08:51)
[2020-01-27 09:09] VITALS: BP 146/78; PULSE 58; RESP 17; TEMP 37; O2SAT 96
[2020-01-27 09:13] VITALS: BP 143/88; PULSE 64; RESP 15; O2SAT 96
--- NOTE | 2020-01-27 09:14 | PM.OP.ENDO ---
Operative Date/Time/Diagnoses Date of procedure: 01/27/20 Time of procedure: 09:14 Pre-op diagnosis: Screening examination. Last exam 5 years ago. History of polyps. Post-op diagnosis: same (Two small polyps removed. Sigmoid diverticulosis.) Procedure & Clinicians Study performed: Colonoscopy with cold biopsy Same procedure as scheduled: Yes Indications: Screening in an elevated risk patient Surgeon: Eric Rdyer Procedure Notes SCOAP/Timeout: Performed Procedure in detail: The patient was placed in the left lateral decubitus position and underwent IV sedation directed by the surgeon consisting of fentanyl and Versed. Digital exam was unremarkable. No mass in the prostate.. The scope was inserted and advanced through the rectum into the sigmoid, descending, transverse, and ascending colon. Patient had a small polyp noted going in which was biopsied and removed. Patient was also noted to have sigmoid diverticulosis. The cecum was reached identified by the ileocecal valve and the appendiceal opening. The ileocecal valve was briefly cannulated. The terminal ileum was normal in appearance. The scope was gradually brought out. One other Polyp was found at about 65 cm and removed. It turned out to be quite close to the other polyps so they were placed in the same container.. The scope ultimately was retroflexed in the rectum. The appearance was normal. The scope was removed and the patient tolerated the procedure well. The prep was good. Scope withdrawal time: 8 minutes(9 total) Sedation minutes: 23 Findings: diverticulosis (Sigmoid) and polyp (Two small polyps) Specimen(s): other (Polyps) Complications: none Post-procedure Recommendations: Colonscopy in 5 years Follow up: as needed Disposition: PACU
[2020-01-27 09:18] VITALS: BP 144/78; PULSE 62; RESP 18; TEMP 37.2; O2SAT 97
[2020-01-27 09:25] VITALS: BP 138/88; PULSE 60; RESP 17; TEMP 37.1; O2SAT 97
== END 2020-01-27 09:40 | disposition home or self-care (01) ==
PROVIDERS: Family Provider Family Medicine; PCP Family Medicine; Referring Provider Specialist; Visit Provider Specialist
PROC: 0DJD8ZZ Inspection of Lower Intestinal Tract, Via Natural or Artificial Opening Endoscopic (ICD-10-PCS; CPT 45378; principal; 2020-01-27 08:30)
DX: Z12.11 Encounter for screening for malignant neoplasm of colon (principal); D12.6 Benign neoplasm of colon, unspecified; K57.30 Diverticulosis of large intestine without perforation or abscess without bleeding; E66.9 Obesity, unspecified; G47.33 Obstructive sleep apnea (adult) (pediatric); Z86.010 Personal history of colon polyps; Z68.31 Body mass index [BMI] 31.0-31.9, adult
CPT/HCPCS: 45380; 99152; J2250; J3010

== ENCOUNTER → 2020-10-06 07:02 | Outpatient (CLI) | payer MEDICARE, OTHER, SELFPAY ==
--- NOTE | 2020-10-06 | DI.US.S_ITS ---
PROCEDURE: US ABD AORTA ANEURYSM SCREEN INDICATIONS: AAA SCREENING TECHNIQUE: Real time scanning was performed of the aorta and iliac arteries, with image documentation. COMPARISON: [facility], CT, KIDNEY/ URETER/BLADDER, 06/10/2017, 16:36. FINDINGS: Aorta: Proximal aorta is not well visualized due to overlying bowel gas. Mid-aorta measures 1.8 cm. Distal aortic diameter is 1.3 cm. Iliac arteries: Right common iliac artery measures 1.1 cm. Left common iliac artery measures 0.9 cm. IMPRESSION: Negative for abdominal aortic aneurysm. Dictated by: Leon Minor M.D. on 10/06/2020 at 9:00 Approved by: Leon Minor M.D. on 10/06/2020 at 9:02
== END ==
PROVIDERS: Family Provider Family Medicine; PCP Family Medicine; Referring Provider Family Medicine; Visit Provider Family Medicine
DX: Z13.6 Encounter for screening for cardiovascular disorders (principal)
CPT/HCPCS: 76706

== ENCOUNTER → 2021-05-01 14:07 | Outpatient (CLI) | payer MEDICARE, OTHER, SELFPAY ==
--- NOTE | 2021-05-01 14:09 | DI.RAD.S_ITS ---
PROCEDURE: XR HAND LT MIN 3V INDICATIONS: BILATERAL HAND PAIN TECHNIQUE: 3 views of the hand(s) acquired. COMPARISON: [facility], , HAND 3V LEFT, 12/12/2014, 11:55. FINDINGS: Bones: No fractures or dislocations. Carpal bones are normally aligned. No suspicious bony lesions mild 1st CMC joint, 1st MCP joint, 2nd MCP joint osteoarthritis.. Soft tissues: No suspicious soft tissue calcifications. IMPRESSION: 1. Osteoarthritis as described above. 2. No fracture. No acute osseous lesion. If symptoms and/or clinical suspicion for pathology persists, further assessment with repeat radiographs (7-10 days) or advanced imaging (e.g. CT, MRI or bone scan) should be considered. Dictated by: Rebekah Davila MD, PhD on 05/01/2021 at 16:52 Approved by: Rebekah Davila MD, PhD on 05/01/2021 at 16:53
--- NOTE | 2021-05-01 14:09 | DI.RAD.S_ITS ---
PROCEDURE: XR HAND RT MIN 3V INDICATIONS: BILATERAL HAND PAIN TECHNIQUE: 3 views of the hand acquired. COMPARISON: [facility], , HAND 3V LEFT, 12/12/2014, 11:55. FINDINGS: Bones: No acute fractures or dislocations. Carpal bones are normally aligned. No suspicious bony lesions. Moderate to severe degenerative changes are seen at the 1st carpometacarpal joint. Mild scattered degenerative changes are seen throughout the interphalangeal joints of the hand. There is generalized osteopenia. Soft tissues: No suspicious soft tissue calcifications. IMPRESSION: Moderate to severe osteoarthrosis at the 1st carpometacarpal joint. Additional scattered mild degenerative changes. No acute osseous abnormality. Dictated by: Leon Minor M.D. on 05/01/2021 at 16:55 Approved by: Leon Minor M.D. on 05/01/2021 at 16:56
== END ==
PROVIDERS: Family Provider Family Medicine; PCP Family Medicine; Referring Provider Family Medicine; Visit Provider Family Medicine
DX: M79.642 Pain in left hand (principal); M79.641 Pain in right hand; M19.042 Primary osteoarthritis, left hand; M18.0 Bilateral primary osteoarthritis of first carpometacarpal joints
CPT/HCPCS: 73130

== ENCOUNTER 2021-06-20 13:43 | Emergency (ER) | payer MEDICARE, OTHER, SELFPAY ==
[2021-06-20] VITALS (7 sets, daily range): BP systolic 160–192; BP diastolic 70–89; PULSE 58–74; RESP 18; O2SAT 92–95; BMI 33.0
--- NOTE | 2021-06-20 16:01 | ED_ITS ---
HPI - Head Injury General Chief complaint: Head Injury Stated complaint: Head lac Time Seen by Provider: 06/20/21 15:59 Source: patient and family Mode of arrival: Ambulatory History of Present Illness HPI Narrative: Patient is a 65-year-old male who presents with head injury. He says he was trimming trees he cut however and she was under a tree stood up membrane she just trimmed hit his head. He has some bleeding. He is not on any antiplatelet or anticoagulation medication. No loss of consciousness. He actually had injury to this spot about 2 months ago. His tetanus is up-to-date. Related Data Home Medications Medication Instructions Recorded Confirmed pravastatin 40 mg tablet 40 mg PO QDAY #0 04/28/17 01/27/20 [PROBIOTIC 4X ORAL] 1 tab PO QDAY #0 06/10/17 02/04/19 cholecalciferol (vitamin D3) 50 2,000 unit PO QDAY #0 06/10/17 01/27/20 mcg (2,000 unit) capsule (Vitamin D3) aspirin 81 mg tablet,delayed 81 mg PO DAILY 10/06/18 01/27/20 release (Adult Low Dose Aspirin) candesartan 32 mg tablet 32 mg PO DAILY 10/06/18 01/27/20 diltiazem HCl 240 mg 240 mg PO DAILY 10/06/18 01/27/20 capsule,extended release 24 hr, controlled (DILT-XR) metoprolol succinate 50 mg 50 mg PO DAILY 10/06/18 01/27/20 tablet,extended release 24 hr multivitamin (Multiple Vitamins) 2 tab PO QDAY #0 tab 10/06/18 01/27/20 Respironics Dreamstation CPAP #1 ea 02/04/19 02/04/19 fluoxetine 20 mg tablet 20 mg PO DAILY 08/10/20 08/10/20 insulin glargine 100 unit/mL (3 10 unit SUBCUT BID 08/10/20 08/10/20 mL) subcutaneous pen (Lantus Solostar U-100 Insulin) levothyroxine 75 mcg capsule 75 mcg PO DAILY 08/10/20 08/10/20 Allergies Allergy/AdvReac Type Severity Reaction Status Date / Time adhesive [ADHESIVE] Allergy Mild Rash Verified 06/20/21 13:59 corn syrup [CORN SYRUP] Allergy Unknown Verified 08/10/20 11:43 lactose [LACTOSE] Allergy Unknown Verified 08/10/20 11:43 EGGS Allergy Unknown DIARRHEA Uncoded 08/10/20 11:43 Review of Systems Review of Systems Narrative: GENERAL: Denies chills,fever HEENT: Denies throat pain RESPIRATORY: Denies dyspnea, cough, wheezing CARDIOVASCULAR: Denies chest pain, palpitations GASTROINTESTINAL: Denies nausea, vomiting MUSCULOSKELETAL: Denies extremity pain, injury SKIN: See HPI NEUROLOGIC: Denies weakness, dizziness, headache, numbness 8 point review of systems is negative except for those stated above and HPI Patient History Medical History (Updated 06/20/21 @ 16:10 by Carla Martínez DO) Cat bite of hand Depression Excessive daytime sleepiness History of adenomatous polyp of colon Hypothyroidism Obesity (BMI 30-39.9) Obstructive sleep apnea (11/05/18) Snoring Social History household members: spouse Smoking Status: Never smoker Smoking Status: Never smoker alcohol intake frequency: 0-2 drinks per day Substance Use Type: does not use Exam Initial Vital Signs Initial Vital Signs: Vital Signs Pulse Rate 74 06/20/21 13:50 Blood Pressure 192/89 H 06/20/21 13:50 Pulse Oximetry 93 06/20/21 13:50 GENERAL: Well-appearing, well-nourished and in no acute distress. CARDIOVASCULAR: peripheral pulses in tact, cap refill <2 sec RESPIRATORY: No respiratory distress, speaks in full sentences without difficulty EXTREMITIES: Normal range of motion, no clubbing or edema. Neurovascularly intact NEUROLOGICAL: Cranial nerves II through XII grossly intact. Normal gait and speech. SKIN: Head laceration 1 cm top of the scalp. Good skin approximation but is still open. No excessive bleeding. Procedures Laceration Repair Laceration 1: Site: scalp Size (cm): 1 Description: linear Depth: simple, single layer Pre-repair: wound explored, irrigated extensively and deep structures intact Skin layer closed with: gabriela Size (cm): other (1 staple) Course Vital Signs Vital signs: Vital Signs - 8 hr 06/20/21 13:50 06/20/21 13:56 06/20/21 14:00 Pulse Rate 74 70 63 Respiratory Rate 18 Blood Pressure 192/89 H 192/89 H 173/70 H Pulse Oximetry 93 95 93 06/20/21 14:30 06/20/21 15:00 06/20/21 15:30 Pulse Rate 60 59 L 58 L Respiratory Rate Blood Pressure 166/75 H 164/75 H 160/72 H Pulse Oximetry 92 93 93 06/20/21 16:00 Pulse Rate 58 L Respiratory Rate Blood Pressure 168/77 H Pulse Oximetry 93 Discharge Plan Departure Patient Disposition: Home Clinical Impression: Laceration of scalp Instructions: DI for Laceration Repair -- [place] Activity Restrictions/Additional Instructions: *You have been diagnosed with scalp laceration *What to do: Have your stable removed in about 5 test 7 days. Keep head clean and dry with soap and water. You may apply antibiotic ointment 1-2 times daily. No hair cuts in till staple has been removed. No soaking in water but bathing is allowed *Continue to take medications as directed Tylenol or ibuprofen as directed if needed for pain *Follow up with your primary care provider in 2-3 days or call [phone] *Return to ER if you should have headache, confusion, vomiting, weakness any new, worsening or concerning symptoms Prescriptions: No Action pravastatin 40 MG tablet 40 mg PO QDAY Qty: 0 0RF cholecalciferol (vitamin D3) [Vitamin D3] 2,000 UNIT capsule 2,000 unit PO QDAY Qty: 0 0RF [PROBIOTIC 4X ORAL] 1 tab PO QDAY Qty: 0 0RF multivitamin [Multiple Vitamins] tablet 2 tab PO QDAY Qty: 0 0RF Lantus Solostar U-100 Insulin 100 unit/mL (3 mL) insulin pen 10 unit SUBCUT BID 0RF levothyroxine 75 mcg capsule 75 mcg PO DAILY 0RF fluoxetine 20 mg tablet 20 mg PO DAILY 0RF candesartan 32 mg tablet 32 mg PO DAILY 0RF metoprolol succinate 50 mg tablet extended release 24 hr 50 mg PO DAILY 0RF diltiazem HCl [DILT-XR] 240 mg capsule,ext.rel 24h degradable 240 mg PO DAILY 0RF aspirin [Adult Low Dose Aspirin] 81 mg tablet,delayed release (DR/EC) 81 mg PO DAILY 0RF (DME) Respironics Dreamstation CPAP Qty: 1 0RF Rx Instructions: Pressure: 6-14 cmH2O DME: [facility] Referrals: Gildardo Jones MD [Primary Care Provider] -
== END 2021-06-20 16:16 | disposition home or self-care (01) ==
PROVIDERS: Emergency Provider Emergency Medicine; Family Provider Family Medicine; PCP Family Medicine
DX: S01.01XA Laceration without foreign body of scalp, initial encounter (principal); W20.8XXA Other cause of strike by thrown, projected or falling object, initial encounter
CPT/HCPCS: 12001; 99281; 99282

== ENCOUNTER 2022-03-14 17:47 | Emergency (ER) | payer MEDICARE, OTHER, SELFPAY ==
[2022-03-14 17:52] VITALS: BP 220/98; PULSE 84; RESP 14; TEMP 36.8; O2SAT 98
--- NOTE | 2022-03-14 17:58 | DI.US.S_ITS ---
PROCEDURE: US PERIPH VENOUS LOW EXTREM RT INDICATIONS: EDEMA TECHNIQUE: Real-time imaging, as well as color and pulse Doppler interrogation, were performed of the lower extremity deep veins from the inguinal ligament to the popliteal fossa. COMPARISON: None. FINDINGS: Extensive right-sided occlusive deep venous thrombosis can be seen involving the common femoral vein, the femoral vein, and the popliteal vein. IMPRESSION: Extensive occlusive right lower extremity deep venous thrombosis is seen. Dictated by: Brian Wayne M.D. on 03/14/2022 at 17:47 Approved by: Brian Wayne M.D. on 03/14/2022 at 17:48
--- NOTE | 2022-03-14 18:21 | ED_ITS ---
HPI - Extremity Problem General Chief complaint: Extremity Problem,Nontraumatic Stated complaint: rt leg pain, swollen Time Seen by Provider: 03/14/22 18:21 Source: patient Mode of arrival: Ambulatory History of Present Illness HPI Narrative: 66M non smoker with history of HTN, diabetes, NSTEMI, STEPHANIE presents with his and the chief complaint of pain and swelling in his right lower extremity from the knee down in the absence of injury over the past few days. He states it is being increasingly crampy intense feeling particularly in the calf and seems to be worse when he walks and improves with rest. He denies fever chills. Denies any pain in his medial thigh. He has had no chest pain, shortness of breath, near-syncope or hemoptysis. He denies any recent trauma or injury nor history of known cancer. He states his most recent travel was at the end of January and that he likely has not been as active recently. He denies nausea, vomiting or diarrhea and has no urinary complaints such as dysuria, frequency or urgency Related Data Home Medications Medication Instructions Recorded Confirmed pravastatin 40 mg tablet 40 mg PO QDAY ##0 04/28/17 01/27/20 [PROBIOTIC 4X ORAL] 1 tab PO QDAY ##0 06/10/17 02/04/19 cholecalciferol (vitamin D3) 50 2,000 unit PO QDAY ##0 06/10/17 01/27/20 mcg (2,000 unit) capsule (Vitamin D3) candesartan 32 mg tablet 32 mg PO DAILY 10/06/18 01/27/20 diltiazem HCl 240 mg 240 mg PO DAILY 10/06/18 01/27/20 capsule,extended release 24 hr, controlled (DILT-XR) metoprolol succinate 50 mg 50 mg PO DAILY 10/06/18 01/27/20 tablet,extended release 24 hr multivitamin (Multiple Vitamins 2 tab PO QDAY #0 tabs 10/06/18 01/27/20 tablet) Respironics Dreamstation CPAP #1 ea 02/04/19 02/04/19 fluoxetine 20 mg tablet 20 mg PO DAILY 08/10/20 08/10/20 insulin glargine 100 unit/mL (3 10 unit SUBCUT BID 08/10/20 08/10/20 mL) subcutaneous pen (Lantus Solostar U-100 Insulin) levothyroxine 75 mcg capsule 75 mcg PO DAILY 08/10/20 08/10/20 Previous Rx's Medication Instructions Recorded apixaban 5 mg (74 tabs) tablets in See Rx Instructions PO .COMPLEX 03/14/22 a dose pack (Eliquis DVT-PE Treat #74 ea 30D Start) Allergies Allergy/AdvReac Type Severity Reaction Status Date / Time adhesive [ADHESIVE] Allergy Mild Rash Verified 03/14/22 17:57 corn syrup [CORN SYRUP] Allergy Unknown Verified 03/14/22 17:57 lactose [LACTOSE] Allergy Unknown Verified 03/14/22 17:57 EGGS Allergy Unknown DIARRHEA Uncoded 08/10/20 11:43 Review of Systems Review of Systems Narrative: GENERAL: Denies chills, fatigue, malaise, fever, sweats. HEENT: Denies sinus pain, ear pain, sore throat, difficulty swallowing, dizziness. RESPIRATORY: Denies dyspnea, cough, wheezing, hemoptysis, sputum. CARDIOVASCULAR: Denies chest pain, palpitations, orthopnea, edema, GASTROINTESTINAL: Denies nausea, vomiting, abdominal pain, diarrhea, constipation, melena. : Denies dysuria, frequency, incontinence, hematuria, urinary retention. MUSCULOSKELETAL: See HPI SKIN: see HPI NEUROLOGIC: Denies weakness, headache, numbness, change in speech, confusion, seizures, incoordination. PSYCHIATRIC: No concerning psychosocial issues. 12 point review of systems is negative except for those stated above Patient History Medical History Cat bite of hand Depression Excessive daytime sleepiness History of adenomatous polyp of colon Hypothyroidism Obesity (BMI 30-39.9) Obstructive sleep apnea (11/05/18) Snoring Social History household members: spouse Smoking Status: Never smoker Smoking Status: Never smoker alcohol intake frequency: 0-2 drinks per day Substance Use Type: does not use Exam Narrative Exam Narrative: GENERAL: [66] year old patient appears stated age. Well-developed patient, in mild distress. HEAD: Atraumatic. Normocephalic. EYES: Pupils equal round and reactive. Extraocular motions intact. No scleral icterus. No injection or drainage. ENT: Nose without bleeding, purulent drainage. Throat without erythema, tonsillar hypertrophy or exudate. Airway patent. NECK: Trachea midline. Non tender CARDIOVASCULAR: Regular rate and rhythm without murmurs, gallops, or rubs. RESPIRATORY: Clear to auscultation. Breath sounds equal bilaterally. No wheezes, rales, or rhonchi. GASTROINTESTINAL: Abdomen soft, non-tender, nondistended. EXTREMITIES: R calf pain on palpation, no obvious erythema. Positive Anthony's. NO medial thigh pain BACK: Nontender without deformity or crepitance. No flank tenderness. NEURO: AOx3. SKIN: No rash or erythema of visible areas Initial Vital Signs Initial Vital Signs: Vital Signs Temperature 98.3 F 03/14/22 17:52 Pulse Rate 84 03/14/22 17:52 Respiratory Rate 14 03/14/22 17:52 Blood Pressure 220/98 H 03/14/22 17:52 Pulse Oximetry 98 03/14/22 17:52 Oxygen Delivery Method 03/14/22 17:52 Course Orders Ordered: Discontinued Medications Enoxaparin Sodium (Enoxaparin 40 Mg/0.4 Ml Syringe) 105 mg 1 mg/kg (105 mg) SUBCUT NOW ONE Stop: 03/14/22 19:22 Last Admin: 03/14/22 19:49 Dose: 105 mg Documented By: MARIA ALEJANDRA Vital Signs Vital signs: Vital Signs - 8 hr 03/14/22 17:52 Temperature 98.3 F Pulse Rate 84 Respiratory Rate 14 Blood Pressure 220/98 H Pulse Oximetry 98 Oxygen Delivery Method Room Air MDM - Extremity (Nontraumatic) Imaging Data US - DVT: Radiologist's Impression: Close Vascular Ultrasound (Signed) Brian Wayne - 03/14/22 Hand X-Ray (Signed) Rebekah Davila - 05/01/21 Hand X-Ray (Signed) Leon Minor - 05/01/21 Abdominal Arterial Study US (Signed) Leon Minor - 10/06/20 Telemetry Strips 01/27/20 Bladder Scan 08/13/17 Launch?[address] [address] Ultrasound Report Signed Patient: Charbel Chavez MR#: [id number] : 1955 Acct:[id number] Age/Sex: 66 / M Date of Service: 03/14/22 Loc: ED Accession Number: [id number] ?? Procedure: US periph venous low extrem rt Ordering Provider: Smith Caldwell D.O. PROCEDURE:? US PERIPH VENOUS LOW EXTREM RT ? INDICATIONS:? EDEMA ? TECHNIQUE:? Real-time imaging, as well as color and pulse Doppler interrogation, were performed of the lower extremity deep veins from the inguinal ligament to the popliteal fossa.? ? COMPARISON:? None. ? FINDINGS:? Extensive right-sided occlusive deep venous thrombosis can be seen involving the common femoral vein, the femoral vein, and the popliteal vein. ? ? IMPRESSION:? Extensive occlusive right lower extremity deep venous thrombosis is seen. ? ? Dictated by: Brian Wayne M.D. on 03/14/2022 at 17:47 ? ? Approved by: Brian Wayne M.D. on 03/14/2022 at 17:48 ? MDM Narrative Medical decision making narrative: 66M non smoker with history of HTN, diabetes, NSTEMI, SETPHANIE presents with his and the chief complaint of pain and swelling in his right lower extremity Multiple etiologies for patient's symptoms considered including: [DVT, cellulitis] Ultrasound demonstrates large right lower extremity DVT. Patient has no chest pain, shortness of breath or tachycardia, very low suspicion for pulmonary embolism, no indication for advanced imaging at this time.. Findings and discharge diagnosis discussed with patient/family followed by verbalization of understanding Return precautions discussed with patient/family whom verbalize understanding. Discharge Plan Departure Patient Disposition: Home Clinical Impression: DVT (deep venous thrombosis) Qualifiers: DVT location: lower extremity Affected thrombotic vein of extremity: femoral Chronicity: acute Laterality: right Qualified Code(s): I82.411 - Acute embolism and thrombosis of right femoral vein Instructions: DI for Deep Vein Thrombosis Activity Restrictions/Additional Instructions: *You have been diagnosed with [DVT in the right lower leg] *What to do: *Please continue to take your regular medications as directed. [x ] New medication prescriptions sent to your pharmacy: [ [facility]] *Please follow up with your primary care provider in 2-3 days, call for an appointment. Let them know you were seen in the Emergency Department and that we ask that you be seen in follow up. We will electronically transmit a record of today's note if your PCP is in our system *If you do not have a primary care provider please contact the [facility] Resource line at [phone]. They will ask some questions about your medical history and help get you set up with a doctor in the community. *Return to Emergency Department if you should have any new, worsening or concerning symptoms, such as [fever greater than 101 F, shaking chills, worsening pain, persistent vomiting, chest pain, shortness of breath, or other bothersome symptoms] Prescriptions: New Eliquis DVT-PE Treat 30D Start 5 mg (74 tabs) tablets,dose pack See Rx Instructions .ROUTE .COMPLEX Qty: 74 0RF Rx Instructions: orally per package directions No Action pravastatin 40 MG tablet 40 mg PO QDAY Qty: 0 cholecalciferol (vitamin D3) [Vitamin D3] 2,000 UNIT capsule 2,000 unit PO QDAY Qty: 0 [PROBIOTIC 4X ORAL] 1 tab PO QDAY Qty: 0 multivitamin [Multiple Vitamins] tablet 2 tab PO QDAY Qty: 0 Lantus Solostar U-100 Insulin 100 unit/mL (3 mL) insulin pen 10 unit SUBCUT BID levothyroxine 75 mcg capsule 75 mcg PO DAILY fluoxetine 20 mg tablet 20 mg PO DAILY candesartan 32 mg tablet 32 mg PO DAILY metoprolol succinate 50 mg tablet extended release 24 hr 50 mg PO DAILY diltiazem HCl [DILT-XR] 240 mg capsule,ext.rel 24h degradable 240 mg PO DAILY (DME) Respironics Dreamstation CPAP Qty: 1 Rx Instructions: Pressure: 6-14 cmH2O DME: [facility] Referrals: Gildardo Jones MD [Primary Care Provider] - Visit Report Forms: Patient Portal/API
[2022-03-14] MEDS: ENOXAPARIN 40 MG/0.4 ML SYRINGE 105 MG SUBCUT (19:49)
[2022-03-14 20:00] VITALS: BP 219/80; PULSE 67; RESP 18; O2SAT 98
== END 2022-03-14 20:00 | disposition home or self-care (01) ==
PROVIDERS: Emergency Provider Emergency Medicine; Family Provider Family Medicine; PCP Family Medicine
DX: I82.411 Acute embolism and thrombosis of right femoral vein (principal)
CPT/HCPCS: 93971; 96372; 99281; 99283; J1650

== ENCOUNTER → 2022-09-30 07:40 | Outpatient (CLI) | payer MEDICARE, OTHER, SELFPAY ==
--- NOTE | 2022-09-30 07:43 | DI.US.S_ITS ---
PROCEDURE: US ABDOMEN COMPLETE INDICATIONS: TRANSAMINITIS TECHNIQUE: Real-time scanning was performed of the abdominal and retroperitoneal organs, with image documentation. COMPARISON: None. FINDINGS: Liver: Increased liver echogenicity with posterior attenuation, most consistent with moderate to severe steatosis. Gallbladder: Gallbladder sludge. No wall thickening. Biliary ducts: Intrahepatic bile ducts are non-dilated. Extrahepatic bile duct caliber measures 4.7 mm. Normal is 6-7 mm or less in diameter, or 10 mm or less post-cholecystectomy. Pancreas: Poorly visualized due to overlying bowel gas. Spleen: Spleen is normal in size and homogeneous in echotexture. Kidneys: Kidneys are normal in size and echotexture. Right kidney measures 12.7 cm long; left kidney measures 13.1 cm long. No hydronephrosis or nephrolithiasis. No solid masses. Aorta: Visualized aorta is normal in caliber at less than 3 cm. Iliacs: Proximal common iliac arteries are normal in caliber at less than 2.5 cm. IVC: Not visualized. Miscellaneous: No free abdominal fluid. IMPRESSION: Hepatic steatosis. In the absence of alcohol use or other confounding factors, elevated LFTs may indicate non-alcoholic steatohepatitis (RAMIREZ). Trace gallbladder sludge. No evidence of acute cholecystitis. Dictated by: Bob Osullivan M.D. on 09/30/2022 at 10:44 Approved by: Bob Osullivan M.D. on 09/30/2022 at 10:45
== END ==
PROVIDERS: Family Provider Family Medicine; PCP Family Medicine; Referring Provider Internal Medicine Hematology & Oncology; Visit Provider Internal Medicine Hematology & Oncology
DX: I82.401 Acute embolism and thrombosis of unspecified deep veins of right lower extremity (principal); K76.0 Fatty (change of) liver, not elsewhere classified; R74.01 Elevation of levels of liver transaminase levels
CPT/HCPCS: 76700

== ENCOUNTER → 2022-12-16 13:23 | Outpatient (CLI) | payer MEDICARE, OTHER, SELFPAY ==
--- NOTE | 2022-12-16 | DI.ECHO.S_ITS ---
[place] +---------+ [facility] +---------+ : : [address] : : : : [id number] : : : : Phone: [phone] Echocardiogram Report + + :Name: GOPAL CARRILLO Study Date: 12/16/2022 Height: 69.5 in: :[facility] ReadingLocation: Weight: 230 lb : : Gender: Male BSA: 2.2 m2 : :: 1955 Age: 67 yrs BP: 164/81 mmHg: :Reason For Study: DYSPNEA : :Ordering Physician: TONYA, : :VASQUEZ Performed By: Ana Cristina Jack : :Referring: VASQUEZ BROWN : + + Interpretation Summary 1) Normal left ventricular thickness, size, wall motion, and systolic function (EF 55-60%). 2) Normal right ventricular size and function. 3) No significant valvular abnormalities. 4) Compared to the Echo done 07/11/2017, no significant change. Procedure: A two-dimensional transthoracic echocardiogram with color flow and Doppler was performed. The study quality was technically adequate. Comparison is made with the echocardiogram of 07/11/2017. The patient was in sinus rhythm with heart rates between 49-55 bpm during the exam. Left Ventricle: The left ventricle is normal in size and wall thickness. The ejection fraction is estimated to be 55-60%. Left ventricular systolic function appears normal without focal wall motion abnormalities. Diastolic parameters suggest a relaxation abnormality of the left ventricle, consistent with probable normal filling pressures. Right Ventricle: The right ventricle is normal in size and function. Atria: The left atrial size is normal. Right atrial size is normal. There is no Doppler evidence for an interatrial shunt. Mitral Valve: The mitral valve is normal in structure and function. There is trace mitral regurgitation. Aortic Valve: The aortic valve is trileaflet. The aortic valve opens well. There is no aortic valve stenosis. No aortic regurgitation is present. Tricuspid Valve: The tricuspid valve is normal in structure and function. There is mild tricuspid regurgitation. Right ventricular systolic pressure is estimated to be 28 mmHg plus the clinically estimated CVP which cannot be estimated on this exam. Pulmonic Valve: The pulmonic valve leaflets are thin and pliable; valve motion is normal. There is trace pulmonic regurgitation. Great Vessels: The aortic root is normal size. The dimensions of the ascending aorta are normal. The inferior vena cava was not well visualized. Pericardium/ Pleura There is no pericardial effusion. There is no pleural effusion. MMode/2D Measurements & Calculations LVIDd: 5.2 cm LVOT diam: 2.2 cm LVIDs: 3.7 cm Ao root diam: 3.0 cm FS: 28.9 % asc Aorta Diam: 3.2 cm IVSd: 0.90 cm LVPWd: 1.0 cm LV plascencia. diameter/BSA (cm/m^2): 2.4 LV sys. diameter/BSA (cm/m^2): 1.7 LA A2 area: 17.0 cm2 RA long axis: 4.9 cm LA A4 area: 16.3 cm2 RA area: 14.5 cm2 LA length (vol): 5.5 cm RA vol: 37.0 ml LA vol: 43.0 ml RA : 16.8 ml/m2 LA vol index: 19.5 ml/m2 RVD1 (basal): 3.2 cm RVD2 (mid): 2.9 cm TAPSE: 1.8 cm Doppler Measurements & Calculations Ao V2 max: 179.5 cm/sec LVOT Max Ricki: 111.5 cm/sec Ao V2 mean: 129.4 cm/sec LV V1 max P.0 mmHg Ao max P.9 mmHg LV V1 VTI: 23.4 cm Ao mean P.3 mmHg RACIEL(I,D): 2.4 cm2 Ao V2 VTI: 37.4 cm RACIEL(V,D): 2.4 cm2 sev ratio: 0.63 RACIEL indexed to BSA (cm^2/m^2): 1.1 MV E max ricki: 64.8 cm/sec TR max ricki: 263.8 cm/sec MV A max ricki: 74.5 cm/sec TR max P.8 mmHg MV E/A: 0.87 PA V2 max: 123.3 cm/sec Med Peak E' Ricki: 7.8 cm/sec PA V2 mean: 84.6 cm/sec E/E' med: 8.3 PA mean P.2 mmHg Lat Peak E' Ricki: 10.8 cm/sec PA pr(Accel): 44.7 mmHg E/E' lat: 6.0 E/e' average: 7.1 MV dec time: 0.17 sec SV(LVOT): 89.9 ml Reading Physician:12:31 PM
== END ==
PROVIDERS: Family Provider Family Medicine; PCP Family Medicine; Referring Provider Internal Medicine Cardiovascular Disease; Visit Provider Internal Medicine Cardiovascular Disease
DX: I07.1 Rheumatic tricuspid insufficiency (principal); R06.09 Other forms of dyspnea; I10 Essential (primary) hypertension
CPT/HCPCS: 93306

== ENCOUNTER → 2022-12-24 15:15 | Outpatient (CLI) | payer MEDICARE, OTHER, SELFPAY ==
--- NOTE | 2022-12-25 08:46 | DI.NM.S_ITS ---
DATE OF SERVICE: 12/24/2022 PROCEDURE: Exercise stress test. INDICATIONS: Hypertension, hyperlipidemia, exertional shortness of breath, diabetes mellitus. CARDIAC STRESS: The patient underwent exercise stress test under the supervision of an attending staff. He walked on [place] protocol for 6 minutes and 17 seconds, achieved maximum heart rate of 124, which was 81% of target heart rate. Resting blood pressure 122/80 and peak blood pressure 190/70 mmHg. The patient did not have any anginal symptoms, but felt fatigue. Baseline rhythm was sinus with some repolarization changes. During stress, no convincing ischemic changes or significant arrhythmia is seen. CONCLUSION: Submaximal exercise stress test did not show any convincing ischemia. Diminished exercise tolerance. Mildly submaximal stress test as patient achieved 81% of target heart rate. She felt fatigue during exercise. No chest pain. Normal blood pressure response. No significant arrhythmias. Overall, low-risk exercise stress test. 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
== END ==
PROVIDERS: Family Provider Family Medicine; PCP Family Medicine; Referring Provider Internal Medicine Cardiovascular Disease; Visit Provider Internal Medicine Cardiovascular Disease
DX: R06.09 Other forms of dyspnea (principal); I10 Essential (primary) hypertension; E78.5 Hyperlipidemia, unspecified
CPT/HCPCS: 93017

== ENCOUNTER → 2023-11-27 15:03 | Outpatient (CLI) | payer MEDICARE, OTHER, SELFPAY ==
--- NOTE | 2023-11-27 15:05 | DI.RAD.S_ITS ---
PROCEDURE: XR ANKLE LT MIN 3V INDICATIONS: L ANKLE SPRAIN TECHNIQUE: 3 views of the ankle were acquired. COMPARISON: CR, FOOT 3V LEFT, 12/29/2013, 16:55. FINDINGS: Bones: No fractures or dislocations. Ankle mortise is normally aligned. No suspicious bony lesions. Soft tissues: No tibiotalar joint effusion. Achilles tendon appears normal. IMPRESSION: No visualized acute fracture or dislocation. However, if clinical concern and/or pain persist, short interval imaging followup in 7-10 days is recommended, as occult injury cannot be definitively excluded. Dictated by: Josi Luis M.D. on 11/27/2023 at 21:12 Approved by: Josi Luis M.D. on 11/27/2023 at 21:12
== END ==
PROVIDERS: Family Provider Family Medicine; PCP Family Medicine; Referring Provider Family Medicine; Visit Provider Family Medicine
DX: S93.402A Sprain of unspecified ligament of left ankle, initial encounter (principal); X58.XXXA Exposure to other specified factors, initial encounter
CPT/HCPCS: 73610